=== PATIENT | male | born 1970 | race Two or more races ===

== ENCOUNTER 2020-08-05 21:52 | Emergency (ER) | payer MEDICAID ==
[~2020-08-05] VITALS: Ht 172.7 cm; Wt 68.0 kg
[2020-08-05] MEDS ORDERED: levETIRAcetam 500 MG/5 ML VIAL IV ONE (22:24)
[2020-08-05] MEDS: levETIRAcetam IV 500 MG in IV DEXTROSE 5% 100 ML IV ONE (22:44)
[2020-08-05 23:20] LABS: BASOPHILS % (AUTO) 0.3 % (0.0-2.0); EOSINOPHILS % (AUTO) 0.3 % (0.0-7.0); HEMATOCRIT 46.1 % (36.7-47.1); HEMOGLOBIN 15.6 g/dL (12.5-16.3); LYMPHOCYTES # (AUTO) 0.7 K/uL (20.0-40.0); MEAN CORPUSCULAR HGB CONC 34 g/dL (32.5-36.3); MEAN CORPUSCULAR VOLUME 94.5 fL (73.0-96.2); MONOCYTES # (AUTO) 0.3 K/uL (2.0-10.0); MONOCYTES % (AUTO) 10.7 % (0.0-11.0); NEUTROPHILS # (AUTO) 1.9 K/uL (1.8-8.9); NEUTROPHILS % (AUTO) 64.7 % (38.5-71.5); PLATELET COUNT (AUTO) 112 K/uL (152-348); RED BLOOD CELL COUNT(AUTO) 4.88 MIL/uL (4.06-5.63); WHITE BLOOD COUNT (AUTO) 2.9 K/uL (3.6-10.2)
[2020-08-05 23:27] LABS: BILIRUBIN,DIRECT 0.3 mg/dL (0.0-0.2); BILIRUBIN,TOTAL 0.6 mg/dL (0.2-1.0); POTASSIUM 3.7 mmol/L (3.5-5.1)
[2020-08-06 00:11] VITALS: BP 105/67
== END 2020-08-06 00:15 | disposition home or self-care (01) ==
LOC: ER 21:53
DX: G40.909 Epilepsy, unspecified, not intractable, without status epilepticus (principal); D72.819 Decreased white blood cell count, unspecified; D69.6 Thrombocytopenia, unspecified; Z59.0 Homelessness; F10.20 Alcohol dependence, uncomplicated; F20.0 Paranoid schizophrenia; F31.9 Bipolar disorder, unspecified; Z20.828 Contact with and (suspected) exposure to other viral communicable diseases; Z86.19 Personal history of other infectious and parasitic diseases; R79.89 Other specified abnormal findings of blood chemistry
CPT/HCPCS: 36415; 85025; A4663; J1953; J7060

== ENCOUNTER 2021-09-05 13:04 | Emergency (ER) | payer SELFPAY ==
[~2021-09-05] VITALS: Ht 172.7 cm; Wt 74.8 kg
[2021-09-05] MEDS ORDERED: PROZAC (13:10)
[2021-09-05] MEDS ORDERED: ZYPREXA (13:10)
--- NOTE | 2021-09-05 13:14 | NUR ---
PT IS IN ROOM #2A. DR HOLMAN EVALUATED THE PT.
[2021-09-05] MEDS ORDERED: OLANZAPINE 5 MG TABLET PO ONE (13:15)
[2021-09-05] MEDS ORDERED: LORAZEPAM 0.5 MG TABLET PO ONE (13:15)
[2021-09-05] MEDS ORDERED: OLANZAPINE 5 MG TABLET ONE (13:26)
[2021-09-05] MEDS ORDERED: LORAZEPAM 0.5 MG TABLET ONE (13:26)
[2021-09-05 13:37] LABS: *BILIRUBIN,URIN NEGATIVE (NEGATIVE); *BLOOD, URINE NEGATIVE (NEGATIVE); *CLARITY,URINE CLEAR (CLEAR); *COLOR,URINE YELLOW (YELLOW); *KETONES,URINE NEGATIVE (NEGATIVE); *UROBILINOGEN,URINE 0.2 E.U./dl (NORMAL); LEUKOCYTE ESTERASE ,URINE NEGATIVE (NEGATIVE); NITRITE, URINE NEGATIVE (NEGATIVE); PH,URINE 6.5 (5.0-8.0); UGLUCOSE NEGATIVE (NEGATIVE)
[2021-09-05 13:41] LABS: HEMATOCRIT 40.9 % (36.7-47.1); MEAN CORPUSCULAR VOLUME 87.1 fL (73.0-96.2); PLATELET COUNT (AUTO) 247 K/uL (152-348)
[2021-09-05 13:54] LABS: *AMPHETAMINE, URINE NEGATIVE (NEGATIVE); *CANNABINOID, URINE POSITIVE (NEGATIVE); *COCCAINE, URINE NEGATIVE (NEGATIVE); *OPIATE, URINE NEGATIVE (NEGATIVE); *PHENCYCLIDINE SCREEN,URINE NEGATIVE (NEGATIVE)
[2021-09-05 13:54] LABS: CARBON DIOXIDE 21 mmol/L (21-32); CHLORIDE 98 mmol/L (98-107); CREATININE 1.1 mg/dL (0.6-1.3); GLUCOSE 140 mg/dL (74-106); POTASSIUM 3.7 mmol/L (3.5-5.1); UREA NITROGEN, BLOOD 6 mg/dL (7-18)
[2021-09-05 14:00] LABS: ALANINE AMINOTRANSFERASE 152 U/L (16-63); ALKALINE PHOSPHATASE 131 U/L (50-136); ASPARTATE AMINOTRANSFERASE 148 U/L (15-37); BILIRUBIN,DIRECT 0.3 mg/dL (0.0-0.2); BILIRUBIN,TOTAL 0.7 mg/dL (0.2-1.0); TOTAL PROTEIN, SERUM 8.9 g/dL (6.4-8.2)
[2021-09-05 14:02] LABS: ACETAMINOPHEN < 2.0 ug/mL (10-30)
[2021-09-05 14:08] LABS: ETHANOL 385 MG/DL (0-0)
[2021-09-05] MEDS ORDERED: ONDANSETRON ODT 4 MG TAB.RAPDIS SL ONE (14:30)
[2021-09-05] MEDS ORDERED: ONDANSETRON ODT 4 MG TAB.RAPDIS ONE (14:53)
--- NOTE | 2021-09-05 15:45 | NUR ---
CRISIS EVALUTOR NEELAM WAS CALLED TO EVALUATE THE PT ACCORDING TO DR HOLMAN ORDER.
--- NOTE | 2021-09-05 16:03 | NUR ---
CRISIS FOREST ECONOMIST HARMONY EVALUATED THE PT. SHE DISCUSSED PT's CASE WITH DR HOLMAN. AFTER BEEN EVALUATED BY CRISIS FOREST ECONOMIST NEELAM PT ELOPED FROM [facility]. ACCORDING TO REQUEST OF CRISIS FOREST ECONOMISTJOJO RICHTER BUS CARD WAS GIVEN TO THE PT BEFORE HE ELOPED.
--- NOTE | 2021-09-05 16:34 | NUR ---
[employer] NON CRISIS LINE WAS CALLED TO REPORT PT ELOPED FROM [facility]. TALKED TO DELINQUENCY PREVENTION OFFICER #[id number].
== END 2021-09-05 17:27 | disposition left against medical advice (07) ==
LOC: ER 13:05
DX: R45.851 Suicidal ideations (principal); F10.129 Alcohol abuse with intoxication, unspecified; Y90.8 Blood alcohol level of 240 mg/100 ml or more; Z82.49 Family history of ischemic heart disease and other diseases of the circulatory system; R74.01 Elevation of levels of liver transaminase levels; R11.0 Nausea; F20.0 Paranoid schizophrenia; Z91.14 Patient's other noncompliance with medication regimen; F31.9 Bipolar disorder, unspecified
CPT/HCPCS: 36415; 85025; A4663; G0480; Q0162

== ENCOUNTER 2022-03-04 20:46 | Emergency (ER) | payer MEDICAID, OTHER ==
[~2022-03-04] VITALS: Ht 172.7 cm; Wt 77.1 kg
[~2022-03-04 20:46] MED LIST: PROZAC; ZYPREXA
[2022-03-04] MEDS ORDERED: THIAMINE HCL 100 MG TABLET PO ONE (21:00)
--- NOTE | 2022-03-04 21:00 | NUR ---
pt delfino velasco for etoh and ground level fall. lab sherry the pt.
--- NOTE | 2022-03-04 21:01 | NUR ---
pt taken cat scan.
[2022-03-04 21:05] LABS: HEMATOCRIT 35.1 % (36.7-47.1); MEAN CORPUSCULAR HEMOGLOBIN 29.8 uug (23.8-33.4); MEAN CORPUSCULAR VOLUME 88.3 fL (73.0-96.2); PLATELET COUNT (AUTO) 290 K/uL (152-348)
[2022-03-04 21:13] LABS: CREATININE 0.9 mg/dL (0.6-1.3); POTASSIUM 3.6 mmol/L (3.5-5.1)
[2022-03-04 21:18] LABS: BILIRUBIN,DIRECT 0.1 mg/dL (0.0-0.2); BILIRUBIN,TOTAL 0.3 mg/dL (0.2-1.0)
--- NOTE | 2022-03-04 21:19 | NUR ---
pt returned from cat scan.
[2022-03-04] MEDS ORDERED: THIAMINE HCL 100 MG TABLET ONE (21:26)
--- NOTE | 2022-03-04 21:35 | NUR ---
Dr. Reed in speaking with the pt.
[2022-03-04] MEDS ORDERED: diphenhydrAMINE 50 MG/1 ML VIAL IM ONE (22:15)
[2022-03-04] MEDS ORDERED: HALOPERIDOL LACTATE 5 MG/1 ML VIAL IM ONE (22:15)
--- NOTE | 2022-03-04 22:20 | NUR ---
pt found on floor, pt has a head laceration to left forehead. Dr. Reed made aware.
[2022-03-04] MEDS ORDERED: diphenhydrAMINE 50 MG/1 ML VIAL ONE (22:26)
[2022-03-04] MEDS ORDERED: HALOPERIDOL LACTATE 5 MG/1 ML VIAL ONE (22:27)
--- NOTE | 2022-03-04 23:30 | NUR ---
pt has been yelling out and urinating on the floor despite placing a urinal to the pt. made aware. pt denies any pain or headache.
[2022-03-05] MEDS ORDERED: HALOPERIDOL LACTATE 5 MG/1 ML VIAL ONE ×3 (00:03→01:53)
[2022-03-05] MEDS ORDERED: HALOPERIDOL LACTATE 5 MG/1 ML VIAL IM ONE ×3 (00:15→02:00)
--- NOTE | 2022-03-05 01:00 | NUR ---
pt is yelling out but will remain in the bed.
[2022-03-05] MEDS ORDERED: KETAMINE HCL 500 MG/10 ML INJ ONE ×5 (02:57→09:04)
--- NOTE | 2022-03-05 02:58 | NUR ---
pt has been yelling out despite given haldol im injections. pt was provided a urinal several times to urinate but the pt refuses to use and it urinates on the floor. despite a diaper that was provided the pt removes it and purposefully urinates on the floor.
[2022-03-05] MEDS ORDERED: KETAMINE HCL 500 MG/10 ML INJ IM ONE ×5 (03:30→07:30)
[2022-03-05 04:02] LABS: *AMPHETAMINE, URINE NEGATIVE (NEGATIVE); *CANNABINOID, URINE POSITIVE (NEGATIVE); *COCCAINE, URINE NEGATIVE (NEGATIVE); *OPIATE, URINE NEGATIVE (NEGATIVE); *PHENCYCLIDINE SCREEN,URINE NEGATIVE (NEGATIVE)
--- NOTE | 2022-03-05 05:22 | NUR ---
pt was taken to cat scan by myself and another RN.
--- NOTE | 2022-03-05 06:13 | NUR ---
pt remains restless needs constant reminder to stay in bed.
--- NOTE | 2022-03-05 07:05 | NUR ---
pt remains restless tries to get out of the bed. there is a student nurse at the bedside as a sitter for patient safety.
--- NOTE | 2022-03-05 07:30 | NUR ---
Patient is extremely agitated, still screaming & yelling despite increment doses of IM Haldol and IM Ketamine given by shift nurse manager staff. When multiple ER staff nurses asked this patient what he needs, patient is unable to verbally expressed his needs. He just screams loudly. He does not follow simple commands. He does not comprehend safety contract. +poor hygiene noted.
--- NOTE | 2022-03-05 08:06 | NUR ---
2 security officers & 2 RNs assisted in putting this patient in restraints.
--- NOTE | 2022-03-05 08:21 | NUR ---
GORE INSERTER student is the 1:1 sitter at this time.
[2022-03-05] MEDS ORDERED: KETAMINE HCL 500 MG/10 ML INJ IV ONE (09:15)
--- NOTE | 2022-03-05 09:45 | NUR ---
Frequent repositioning was done. New pillow cases placed with chux. Patient is frequently moist, with respiration:easy. Patient's personal belongings were wanded by corporate physical security supervisor Nicolas.
--- NOTE | 2022-03-05 09:45 | NUR ---
Note zeyad in ED - 03/05/22 at 0955 by FREDY Frequent repositioning was done. New pillow cases placed. Patient is frequently moist, with respiration:easy. Patient's personal belonings were wanded by event security officer Nicolas.
[2022-03-05] MEDS ORDERED: LORAZEPAM 2 MG/1 ML VIAL ONE (11:04)
--- NOTE | 2022-03-05 11:10 | NUR ---
Nursing supervisor uranium processing Aniya, ER registration staff Willy and 3rd floor waitstaff captainGRACE Sanchez notified re: "Plan to admit to telemetry"
[2022-03-05] MEDS ORDERED: LORAZEPAM 2 MG/1 ML VIAL IV ONE (11:15)
--- NOTE | 2022-03-05 11:45 | NUR ---
covid swab collected, sent to lab. pt tolerated well.
--- NOTE | 2022-03-05 12:17 | NUR ---
Patient's program [email or web address].
--- NOTE | 2022-03-05 12:19 | NUR ---
Patient's steel shot header operator, Humble Barboza here to charge patient's ankle bracelett.
--- NOTE | 2022-03-05 13:02 | NUR ---
DEBBIE Boo is now@[email or web address], SBAR was given to telemetry/transition ER nurse Maria Del Carmen [email or web address].
[2022-03-05] MEDS ORDERED: IV NS 1000 ML 1,000 ML IV PRN (13:30)
[2022-03-05] MEDS ORDERED: ONDANSETRON 4 MG/2 ML VIAL IV PRN (13:30)
[2022-03-05] MEDS ORDERED: REMEDY ESSENTIAL ZINC PASTE 113 GM TP PRN (13:30)
[2022-03-05] MEDS ORDERED: ACETAMINOPHEN 325 MG TABLET PO PRN (13:30)
[2022-03-05] MEDS ORDERED: ZOLPIDEM 5 MG TABLET PO PRN (13:30)
[2022-03-05] MEDS ORDERED: LORAZEPAM 2 MG/1 ML VIAL IV PRN (13:30)
[2022-03-05] MEDS ORDERED: MAGNESIUM HYDROXIDE 30 ML LIQUID UDC PO PRN (13:30)
[2022-03-05] MEDS ORDERED: CHLORDIAZEPOXIDE HCL 25 MG CAPSULE PO SCH (13:30)
--- NOTE | 2022-03-05 13:32 | NUR ---
Nursing SBAR given to automobile upholstery trim installer Dana
[2022-03-05] MEDS ORDERED: CHLORDIAZEPOXIDE HCL 25 MG CAPSULE ONE (14:02)
--- NOTE | 2022-03-05 14:48 | NUR ---
Patient wants to leave, Dr Jaime notified. [facility] hospitalist was paged.
--- NOTE | 2022-03-05 15:02 | NUR ---
Patient is AOx4, and wants to leave the hospital. Patient is able to correctly say his name, today's date, what kind of a place he is currently at, current president of [facility] and his situation. Dr Jaime notified. DEBBIE Boo notified.
--- NOTE | 2022-03-05 15:04 | NUR ---
Patient does not wish to proceed with medical care recommended by DEBBIE Boo and Dr Jaime. Patient was given information related to possible complications, up to and including , which could occur as a result of leaving the hospital at this time. Patient verbalized understanding of risks involved due to leaving against medical advice. Patient signed AMA form.
--- NOTE | 2022-03-05 15:09 | NUR ---
Bus TAP card was requested from nursing first line production supervisor Aniya.
[2022-03-05] MEDS ORDERED: MIRT-93 PO (15:37)
[2022-03-05] MEDS ORDERED: FLUO40CA49 PO (15:37)
[2022-03-05] MEDS ORDERED: DARU1TAB3 PO (15:37)
[2022-03-05] MEDS ORDERED: MULT-213 PO (15:37)
[2022-03-05] MEDS ORDERED: DIVA125T2 PO (15:37)
[2022-03-05] MEDS ORDERED: DOLU50TA PO (15:37)
[2022-03-05] MEDS ORDERED: OMEP40CA21 PO (15:37)
[2022-03-05] MEDS ORDERED: CHOL-35 PO (15:37)
[2022-03-05] MEDS ORDERED: VITA1TAB20 PO (15:37)
[2022-03-05] MEDS ORDERED: LEVE750T10 PO (15:37)
[2022-03-05 15:46] VITALS: BP 128/96
[2022-03-06] MEDS ORDERED: PANTOPRAZOLE SODIUM 40 MG TABLET.DR PO SCH (07:00)
[2022-03-06] MEDS ORDERED: FOLIC ACID 1 MG TABLET PO SCH (09:00)
[2022-03-06] MEDS ORDERED: THIAMINE HCL 100 MG TABLET PO SCH (09:00)
== END 2022-03-05 15:49 | disposition left against medical advice (07) ==
LOC: ER 20:46 → TRANSITION 03-05 12:15 → UNDOADMIN 03-05 12:15
DX: F10.221 Alcohol dependence with intoxication delirium (principal); Y90.8 Blood alcohol level of 240 mg/100 ml or more; S02.2XXA Fracture of nasal bones, initial encounter for closed fracture; W06.XXXA Fall from bed, initial encounter; Y92.238 Other place in hospital as the place of occurrence of the external cause; S01.01XA Laceration without foreign body of scalp, initial encounter; G40.509 Epileptic seizures related to external causes, not intractable, without status epilepticus; Z79.899 Other long term (current) drug therapy; F20.0 Paranoid schizophrenia; F31.9 Bipolar disorder, unspecified; Z53.29 Procedure and treatment not carried out because of patient's decision for other reasons; Z20.822 Contact with and (suspected) exposure to COVID-19; F41.9 Anxiety disorder, unspecified; F17.210 Nicotine dependence, cigarettes, uncomplicated; E87.1 Hypo-osmolality and hyponatremia; D64.9 Anemia, unspecified; F10.239 Alcohol dependence with withdrawal, unspecified; Z78.1 Physical restraint status
CPT/HCPCS: 12002; 80076; 80048; 83735; 85025; 36415; 70450 ×2; 99285; 96372 ×2; 80320; 87426; 96374; 96375; 80307; J1200; J1630 ×4; J3490 ×5; J2060; A4663; G0378; G0480

== ENCOUNTER 2022-07-26 13:25 | Emergency (ER) | payer OTHER ==
[~2022-07-26] VITALS: Ht 172.7 cm; Wt 77.1 kg
[~2022-07-26 13:25] MED LIST changes: +CHOL-35 PO; +DARU1TAB3 PO; +DIVA125T2 PO; +DOLU50TA PO; +FLUO40CA49 PO; +LEVE750T10 PO; +MIRT-93 PO; +MULT-213 PO; +OMEP40CA21 PO; -PROZAC; +VITA1TAB20 PO; -ZYPREXA
[2022-07-26] MEDS ORDERED: IV NORMAL SALINE 1000 ML BAG IV ONE (14:00)
[2022-07-26 14:05] LABS: HEMATOCRIT 35.9 % (36.7-47.1); MEAN CORPUSCULAR VOLUME 86.8 fL (73.0-96.2); PLATELET COUNT (AUTO) 269 K/uL (152-348)
[2022-07-26 14:16] LABS: BILIRUBIN,TOTAL 0.2 mg/dL (0.2-1.0); CREATININE 1.2 mg/dL (0.6-1.3); POTASSIUM 3.7 mmol/L (3.5-5.1); TOTAL PROTEIN, SERUM 8.1 g/dL (6.4-8.2)
[2022-07-26 14:20] LABS: ETHANOL 269 MG/DL (0-0)
[2022-07-26 14:28] LABS: ACETAMINOPHEN < 2.0 ug/mL (10-30)
[2022-07-26] MEDS ORDERED: LORAZEPAM 2 MG/1 ML VIAL ONE (14:48)
[2022-07-26] MEDS ORDERED: LORAZEPAM 2 MG/1 ML VIAL IV ONE (15:00)
[2022-07-26 15:14] LABS: *AMPHETAMINE, URINE NEGATIVE (NEGATIVE); *CANNABINOID, URINE NEGATIVE (NEGATIVE); *COCCAINE, URINE NEGATIVE (NEGATIVE); *OPIATE, URINE NEGATIVE (NEGATIVE); *PHENCYCLIDINE SCREEN,URINE NEGATIVE (NEGATIVE)
[2022-07-26] MEDS ORDERED: IV NORMAL SALINE 500 ML BAG IV ONE (16:30)
--- NOTE | 2022-07-26 16:45 | NUR ---
Patient ambulating with steady gait, A/Ox3 wityh no distress noted.
--- NOTE | 2022-07-26 17:27 | NUR ---
IV removed. Catheter intact and site benign. Pressure and 4x4 gauze applied to site. No bleeding noted.
[2022-07-26 17:37] VITALS: BP 110/75
--- NOTE | 2022-07-26 17:37 | NUR ---
Patient discharged to home in stable condition with Taxi taking patient home. Written and verbal after care instructions given. Patient verbalizes understanding of instructions. Stressed follow up or return to ER for worsening s/s.
== END 2022-07-26 17:41 | disposition home or self-care (01) ==
LOC: ER 13:25
DX: F10.20 Alcohol dependence, uncomplicated (principal); Y90.8 Blood alcohol level of 240 mg/100 ml or more; G40.909 Epilepsy, unspecified, not intractable, without status epilepticus; F20.0 Paranoid schizophrenia; F31.9 Bipolar disorder, unspecified; Z79.899 Other long term (current) drug therapy; F17.200 Nicotine dependence, unspecified, uncomplicated
CPT/HCPCS: 80053; 82140; 85025; 36415; 71045; 70450; 99284; 96361; 96374; 80299; 80320; 80307; J2060; A4663; G0480